=== PATIENT | female | born 1955 | race Caucasian/White ===

== ENCOUNTER 2017-06-08 16:49 | Emergency (ER) | payer MEDICARE, OTHER ==
[~2017-06-08] VITALS: Ht 157.5 cm; Wt 88.5 kg
[~2017-06-08 16:49] MED LIST: TRAM50TA2 PO
[2017-06-08 16:53] VITALS: Ht 157.5 cm; Wt 88.5 kg
[2017-06-08 17:55] LABS: ADD UMIC YES; UR ASCORBIC ACID NEGATIVE (NEGATIVE); UR BILIRUBIN (Dip) NEGATIVE (NEGATIVE); UR BLOOD (Dip) NEGATIVE (NEGATIVE); UR CLARITY CLEAR (CLEAR); UR COLOR STRAW (YELLOW); UR GLUCOSE (Dip) NEGATIVE (NEGATIVE); UR KETONES (Dip) NEGATIVE (NEGATIVE); UR LEUKOCYTE ESTERASE (Dip) TRACE Leu/ul (NEGATIVE); UR NITRITE (Dip) NEGATIVE (NEGATIVE); UR RBC 0 /HPF (0-5); UR TOTAL PROTEIN (Dip) NEGATIVE (NEGATIVE); UR UROBILINOGEN (Dip) NEGATIVE (NEGATIVE)
[2017-06-08] MEDS ORDERED: NITR-58 PO (18:17)
--- NOTE | 2017-06-08 20:50 | ERD ---
ER Documentation Chief Complaint Date/Time DATE: 06/08/17 TIME: 20:45 Chief Complaint urgency to urinate HPI 61-year-old female coming in complaining of urinary frequency. Patient is complaining of left-sided back pain. Patient denies any dysuria. Denies hematuria. She has never had this before. Denies chest pain or shortness of breath. Denies changes in bowel movements. Is passing gas normally. Denies fever. Has not taken medications for her symptoms. Patient does take pills for diabetes. Blood sugar at home was 130. Denies polydipsia Medical history: Diabetes, HTN Allergies: PCN ROS All systems reviewed and are negative except as per history of present illness. Medications Home Meds Active Scripts Nitrofurantoin Monohyd Macrocr* (Macrobid*) 100 Mg Capsr, 100 MG PO BID for 14 Days, CAP Prov:RYLEE ZACARIAS PA-C 06/08/17 Tramadol HCl (Tramadol HCl) 50 Mg Tab, 50 MG PO Q6 Y for PAIN, #20 TAB Prov:RADHA FERNANDEZ NP 03/30/15 Allergies Allergies: Coded Allergies: Penicillins (Verified Allergy, Mild, 03/30/15) PMhx/Soc History of Surgery: Yes (cholecystecomy) Anesthesia Reaction: No Hx Neurological Disorder: No Hx Respiratory Disorders: No Hx Cardiac Disorders: No Hx Psychiatric Problems: No Hx Miscellaneous Medical Probl: No Hx Alcohol Use: No Hx Substance Use: No Hx Tobacco Use: No Physical Exam Vitals Vital Signs Date Time Temp Pulse Resp B/P Pulse Ox O2 Delivery O2 Flow Rate FiO2 06/08/17 16:53 98.3 89 20 133/62 99 Physical Exam GENERAL: The patient is well-appearing, well-nourished, in no acute distress. CHEST: Clear to auscultation bilaterally. There are no rales, wheezes or rhonchi. HEART: Regular rate and rhythm. No murmurs, clicks, rubs or gallops. No S3 or S4. ABDOMEN:Soft, nontender and nondistended. Good bowel sounds. No rebound or guarding. No gross peritonitis. No gross organomegaly or masses. No Alvarez sign or McBurney point tenderness. BACK: No midline or flank tenderness. EXTREMITIES: Equal pulses bilaterally. There is no peripheral clubbing, cyanosis or edema. No focal swelling or erythema. Full range of motion. Grossly neurovascularly intact. NEUROLOGIC: Alert and oriented. Cranial nerves II through XII intact. Motor strength in all 4 extremities with 5 out of 5 strength. Sensation grossly intact. Normal speech and gait. Babinski negative. DTR 2+ throughout. SKIN: There is no apparent rash or petechiae. The skin is warm and dry. HEMATOLOGIC AND LYMPHATIC: There is no evidence of excessive bruising or lymphadenopathy. No gross cervical, axillary, or inguinal lymphadenopathy. Results 24 hrs Laboratory Tests Test 06/08/17 17:35 Urine Color STRAW Urine Clarity CLEAR Urine pH 6.0 Urine Specific [place] 1.010 Urine Ketones NEGATIVEmg/dL Urine Nitrite NEGATIVEmg/dL Urine Bilirubin NEGATIVEmg/dL Urine Urobilinogen NEGATIVEmg/dL Urine Leukocyte Esterase TRACELeu/ul Urine Microscopic RBC 0/HPF Urine Microscopic WBC 1/HPF Urine Hemoglobin NEGATIVEmg/dL Urine Glucose NEGATIVEmg/dL Urine Total Protein NEGATIVEmg/dl Procedures/MDM Urine sent for culture MDM: 61-year-old female coming in complaining of urinary urgency. I have low suspicion for hyperglycemia, DKA or diabetic complication. Patient's blood sugar at home was 130. Patient does not complain of polydipsia. I have low suspicion for cauda equina. Patient does not have complaint of back pain or saddle anesthesia. I have low suspicion for pelvic emergency. Patient's exam is not concerning. I have low suspicion for acute abdomen as patient's abdominal exam is not concerning. Patient's urine will be sent for culture. Patient will be given medication for UTI as she is complaining of urinary frequency. Patient is told symptoms change or worsen to return to the ER. Patient understood and complied with plan. Departure Diagnosis: Primary Impression: Genitourinary symptoms Condition: Stable Patient Instructions: Urinary Tract Infections in Women Referrals: RUPERT VELEZ (PCP) Additional Instructions: FOLLOW UP WITH YOUR PRIMARY CARE PHYSICIAN TOMORROW.Return to this facility if you are not improving as expected. RYLEE ZACARIAS PA-C Jun 08, 2017 20:50
== END 2017-06-08 18:27 | disposition home or self-care (01) ==
LOC: FTE 16:49
DX: R35.0 Frequency of micturition (principal); I10 Essential (primary) hypertension; E11.9 Type 2 diabetes mellitus without complications
CPT/HCPCS: 81001; 87086; 99283

== ENCOUNTER 2017-09-11 18:29 | Emergency (ER) | payer MEDICARE, OTHER ==
[~2017-09-11] VITALS: Ht 167.6 cm; Wt 87.0 kg
[~2017-09-11 18:29] MED LIST changes: +NITR-58 PO
[2017-09-11 19:17] VITALS: Ht 167.6 cm; Wt 87.0 kg
[2017-09-11] MEDS ORDERED: ACETAMINOPHEN 325 MG TAB PO ONE (23:00)
[2017-09-11 23:15] LABS: ADD UMIC YES; UR ASCORBIC ACID 40 mg/dL (NEGATIVE); UR BILIRUBIN (Dip) NEGATIVE (NEGATIVE); UR BLOOD (Dip) NEGATIVE (NEGATIVE); UR CLARITY CLEAR (CLEAR); UR COLOR YELLOW (YELLOW); UR GLUCOSE (Dip) NEGATIVE (NEGATIVE); UR KETONES (Dip) NEGATIVE (NEGATIVE); UR LEUKOCYTE ESTERASE (Dip) 1+ Leu/ul (NEGATIVE); UR NITRITE (Dip) NEGATIVE (NEGATIVE); UR RBC 1 /HPF (0-5); UR SPECIFIC GRAVITY (Dip) 1.012 (1.003-1.030); UR TOTAL PROTEIN (Dip) NEGATIVE (NEGATIVE); UR UROBILINOGEN (Dip) NEGATIVE (NEGATIVE)
--- NOTE | 2017-09-11 23:53 | RADRPT ---
PROCEDURE: CT Brain without contrast. CLINICAL INDICATION: Headache. TECHNIQUE: A CT of the brain was performed utilizing axial imaging from the skull base through the vertex without IV contrast. Multiplanar reformatted images were made. Images were reviewed on a Mindie workstation. The CTDIvol is 45.01 mGy and the DLP is 810.25 mGycm. One or more of the following dose reduction techniques were utilized: 1.) Automated exposure control 2.) Adjustment of the mA +/- kV according to patient's size 3.) Use of iterative reconstruction technique. COMPARISON: None FINDINGS: Chronic changes of atrophy and small vessel disease of white matter. There is no intracranial hemorrhage, mass effect, or midline shift. No extra-axial fluid collection is seen. The ventricles and sulci are otherwise normal in size and configuration. The density of th e brain is otherwise normal, and the schmidt white matter differentiation appears well-preserved. The visualized paranasal sinuses and osseous structures are grossly unremarkable. IMPRESSION: 1. Chronic changes of atrophy and small vessel disease white matter. 2. Otherwise, no evident acute process in the head. RPTAT: UU Physician Krunal Date Time Electronically viewed and signed by Physician Krunal on 09/11/2017 23:53 /
--- NOTE | 2017-09-12 00:03 | RADRPT ---
PROCEDURE: CT of the orbits and temporal bones without contrast. CLINICAL INDICATION: Right mastoid pain and tenderness. TECHNIQUE: CT scan of the orbits and temporal bones was performed on a multi-detector high-resol ution CT scanner. Contiguous axial images were obtained without intravenous contrast. Coronal and sagittal reformatted images were also obtained. Images were reviewed on the PACS workstation. DICOM images are available. One or more of the following dose reduction techniques were used: - Automated exposure control. - Adjustment of the mA and/or kV according to patient size. - Use of iterative reconstruction technique. Exam CTD/vol = 29.09 mGy. Total exam DLP = 349.98 mGy-cm. COMPARISON: None. FINDINGS: There is no evidence of fracture. The nasal bones are intact. Bilateral orbital rims, zygoma and z ygomatic arches are intact. The pterygoid plates are intact. Bilateral temporomandibular joints ar e within normal limits. Paranasal sinuses are clear without air fluid levels. Bilateral orbital globes are symmetric and within normal limits. The extraocular muscles are symmet diana and of normal caliber. Bilateral retrobulbar fat are clear. Bilateral optic nerves and superio r ophthalmic veins are within normal limits. Right temporal bone: The mastoid air cells are well formed and aerated. The external auditory anuja l is also well formed and grossly free of soft tissue. Middle ear structures are unremarkable. The ossicles are intact. Inner ear structures are grossly well formed. The facial nerve canal is seen in its extent and is unremarkable. The internal auditory canal is also unremarkable. No lytic or destructive lesions are evident. Left temporal bone: The mastoid air cells are well formed and aerated. The external auditory canal is also well formed and grossly free of soft tissue. Middle ear structures are unremarkable. The ossicles are intact. Inner ear structures are grossly well formed. The facial nerve canal is seen in its extent and is unremarkable. The internal auditory canal is also unremarkable. No lytic or d estructive lesions are evident. IMPRESSION: Unremarkable CT of the orbits and temporal bones. .Edilberto Rodrigez MD, Date Time Electronically viewed and signed by .Edilberto Rodrigez MD, MD on 09/12/2017 00:03 .T/
[2017-09-12] MEDS ORDERED: CEPH-443 PO (00:33)
[2017-09-12] MEDS ORDERED: ACET500C5 PO (00:33)
--- NOTE | 2017-09-12 01:10 | ERD ---
ER Documentation Chief Complaint Chief Complaint headache x 2 days, neck pain HPI 61-year-old female patient with a past medical history of diabetes, hypertension , hyperlipidemia presents to the ED complaining of right-sided headache, ear pain, neck pain that started 2 days. Denies any trauma. Describes the pain as pressure-like and rates it a 6 out of 10. States that she is nauseous but denies any vomiting. Denies any chest pain, shortness of breath, wheezing, dyspnea on exertion, orthopnea, weakness, numbness or tingling. ROS All systems reviewed and are negative except as per history of present illness. Medications Home Meds Active Scripts Cephalexin* (Keflex*) 500 Mg Capsule, 500 MG PO QID for 7 Days, CAP Prov:BRADLY WONG PA-C 09/12/17 Acetaminophen* (Tylophen*) 500 Mg Capsule, 1 CAP PO Q6H Y for PAIN AND OR ELEVATED TEMP, #20 CAP Prov:BRADLY WONG PA-C 09/12/17 Nitrofurantoin Monohyd Macrocr* (Macrobid*) 100 Mg Capsr, 100 MG PO BID for 14 Days, CAP Prov:RYLEE ZACARIAS PA-C 06/08/17 Tramadol HCl (Tramadol HCl) 50 Mg Tab, 50 MG PO Q6 Y for PAIN, #20 TAB Prov:RADHA FERNANDEZ NP 03/30/15 Allergies Allergies: Coded Allergies: Penicillins (Verified Allergy, Mild, 03/30/15) PMhx/Soc History of Surgery: Yes (cholecystecomy) Anesthesia Reaction: No Hx Neurological Disorder: No Hx Respiratory Disorders: No Hx Cardiac Disorders: No Hx Psychiatric Problems: No Hx Miscellaneous Medical Probl: Yes (DM, HTN, high choelsterol) Hx Alcohol Use: No Hx Substance Use: No Hx Tobacco Use: No Smoking Status: Never smoker Physical Exam Vitals Vital Signs Date Time Temp Pulse Resp B/P Pulse Ox O2 Delivery O2 Flow Rate FiO2 09/11/17 19:17 98.8 96 20 146/73 98 Physical Exam Const: [id number], well-nourished. In no acute distress. Head: Atraumatic, normocephalic. No August's syndrome. Eyes: Normal Conjunctiva without injection. No purulent discharge. PERRLA. EOMI ENT: Normal external ear. Ear canal without erythema. Tympanic membrane pearly schmidt without effusion or bulging. Nasal canal clear with normal turbinates. Moist oropharynx without tonsillar exudates. Non-erythematous pharynx. Uvula midline. No drooling. No trismus. Neck: No cervical midline tenderness. Full range of motion. No meningismus. No cervical lymphadenopathy. No JVD. No carotid bruits. Resp: Clear to auscultation bilaterally. No wheezing, rhonchi, rales, or crackles. No accessory muscle use. No retractions. Cardio: Regular rate and rhythm. No murmurs, rubs or gallops. Abd: Soft, non tender, non distended. Normal bowel sounds. No palpable masses. No rebound tenderness. No guarding. Negative McBurney's Point. Negative Alvarez's Sign. Skin: Normal skin turgor. No petechiae or rashes Back: No midline tenderness. No CVA tenderness. Ext: No cyanosis, or edema. Distal pulses intact bilaterally. Neur: Awake and alert. Normal gait. Normal coordination. Cranial Nerves II- VII intact. Normal finger to nose. Muscle strength 5/5. Sensation intact. Psych: Normal Mood and Affect Results 24 hrs Laboratory Tests Test 09/11/17 22:40 Urine Color YELLOW Urine Clarity CLEAR Urine pH 5.0 Urine Specific [place] 1.012 Urine Ketones NEGATIVEmg/dL Urine Nitrite NEGATIVEmg/dL Urine Bilirubin NEGATIVEmg/dL Urine Urobilinogen NEGATIVEmg/dL Urine Leukocyte Esterase 1+Janice/ul Urine Microscopic RBC 1/HPF Urine Microscopic WBC 17/HPF Urine Hemoglobin NEGATIVEmg/dL Urine Glucose NEGATIVEmg/dL Urine Total Protein NEGATIVEmg/dl Current Medications Medications (Trade) Dose Ordered Sig/Jyotsna Route PRN Reason Start Time Stop Time Status Last Admin Dose Admin Acetaminophen (Tylenol Tab) 650 mg ONCE ONCE PO 09/11/17 23:00 09/11/17 23:01 DC 09/11/17 22:44 Procedures/MDM 61-year-old female patient with a past medical history of diabetes, hypertension , hyperlipidemia presents to the ED complaining of right-sided headache, ear pain, anterior neck pain. Patient is afebrile, nontoxic appearing. Patient was given Tylenol here in the ED with improvement of her symptoms. A urinalysis , CT of the brain without contrast, CT of the temporal bones was ordered to further evaluate patient. PROCEDURE: CT of the orbits and temporal bones without contrast. CLINICAL INDICATION: Right mastoid pain and tenderness. TECHNIQUE: CT scan of the orbits and temporal bones was performed on a multi -detector high-resolution CT scanner. Contiguous axial images were obtained without intravenous contrast. Coronal and sagittal reformatted images were also obtained. Images were reviewed on the PACS workstation. DICOM images are available. One or more of the following dose reduction techniques were used: - Automated exposure control. - Adjustment of the mA and/or kV according to patient size. - Use of iterative reconstruction technique. Exam CTD/vol = 29.09 mGy. Total exam DLP = 349.98 mGy-cm. COMPARISON: None. FINDINGS: There is no evidence of fracture. The nasal bones are intact. Bilateral orbital rims, zygoma and zygomatic arches are intact. The pterygoid plates are intact. Bilateral temporomandibular joints are within normal limits. Paranasal sinuses are clear without air fluid levels. Bilateral orbital globes are symmetric and within normal limits. The extraocular muscles are symmetric and of normal caliber. Bilateral retrobulbar fat are clear. Bilateral optic nerves and superior ophthalmic veins are within normal limits. Right temporal bone: The mastoid air cells are well formed and aerated. The external auditory canal is also well formed and grossly free of soft tissue. Middle ear structures are unremarkable. The ossicles are intact. Inner ear structures are grossly well formed. The facial nerve canal is seen in its extent and is unremarkable. The internal auditory canal is also unremarkable. No lytic or destructive lesions are evident. Left temporal bone: The mastoid air cells are well formed and aerated. The external auditory canal is also well formed and grossly free of soft tissue. Middle ear structures are unremarkable. The ossicles are intact. Inner ear structures are grossly well formed. The facial nerve canal is seen in its extent and is unremarkable. The internal auditory canal is also unremarkable. No lytic or destructive lesions are evident. IMPRESSION: Unremarkable CT of the orbits and temporal bones. PROCEDURE: CT Brain without contrast. CLINICAL INDICATION: Headache. TECHNIQUE: A CT of the brain was performed utilizing axial imaging from the skull base through the vertex without IV contrast. Multiplanar reformatted images were made. Images were reviewed on a PACS workstation. The CTDIvol is 45.01 mGy and the DLP is 810.25 mGycm. One or more of the following dose reduction techniques were utilized: 1.) Automated exposure control 2.) Adjustment of the mA +/- kV according to patient's size 3.) Use of iterative reconstruction technique. COMPARISON: None FINDINGS: Chronic changes of atrophy and small vessel disease of white matter. There is no intracranial hemorrhage, mass effect, or midline shift. No extra- axial fluid collection is seen. The ventricles and sulci are otherwise normal in size and configuration. The density of the brain is otherwise normal, and the schmidt white matter differentiation appears well-preserved. The visualized paranasal sinuses and osseous structures are grossly unremarkable. IMPRESSION: 1. Chronic changes of atrophy and small vessel disease white matter. 2. Otherwise, no evident acute process in the head. Patient also has a urinary tract infection noted here in the ED with 1+ leukocyte esterase. Low suspicion for pyelonephritis, acute abdomen, aortic dissection, other emergent conditions. Low suspicion for acute myocardial infarction, pneumothorax, pneumonia, dissection, cardiac tamponade, pulmonary embolism, pleural effusion, AAA, aortic dissection, Boerhaave's syndrome, cardiac dysrhythmias,meningitis, intracranial bleed, seizure, stroke, TIA, carotid dissection, cavernous sinus thrombosis, or other emergent conditions. Patient's physical exam include lungs which were clear to auscultation and a normal pulse oximetry. Bilateral ears pearly barakat. No tenderness to palpation of tragus or mastoid. Low suspicion for mastoiditis, otitis externa, otitis media. Patient is speaking in full sentences. There is a low suspicion for pneumonia, epiglottitis, croup, sinusitis, peritonsillar abscess, hands foot mouth disease, scarlet fever, Louis's angina, retropharyngeal abscess, meningitis, sepsis, acute abdomen or other emergent conditions. Discharge medications: Tylenol, Keflex Follow up with primary care physician in 1-2 days. Instructed patient to return to the ED sooner for any worsening symptoms. Patient's questions were answered. Patient understood and agreed with discharge plan. Patient discharged stable. Departure Diagnosis: Primary Impression: Headache Headache type: unspecified Headache chronicity pattern: unspecified pattern Intractability: not intractable Qualified Code: R51 - Nonintractable headache, unspecified chronicity pattern, unspecified headache type Additional Impressions: Ear pain Laterality: unspecified laterality Qualified Code: H92.09 - Otalgia, unspecified laterality Neck pain Condition: Stable Patient Instructions: Urinary Tract Infections in Women, Headache, Unspecified , Neck Pain, No Trauma Referrals: [facility] YOU HAVE RECEIVED A MEDICAL SCREENING EXAM AND THE RESULTS INDICATE THAT YOU DO NOT HAVE A CONDITION THAT REQUIRES URGENT TREATMENT IN THE EMERGENCY DEPARTMENT. FURTHER EVALUATION AND TREATMENT OF YOUR CONDITION CAN WAIT UNTIL YOU ARE SEEN IN YOUR DOCTORS OFFICE WITHIN THE NEXT 1-2 DAYS. IT IS YOUR RESPONSIBILITY TO MAKE AN APPOINTMENT FOR FOLOW-UP CARE. IF YOU HAVE A PRIMARY DOCTOR --you should call your primary doctor and schedule an appointment IF YOU DO NOT HAVE A PRIMARY DOCTOR YOU CAN CALL OUR PHYSICIAN REFERRAL HOTLINE AT IF YOU CAN NOT AFFORD TO SEE A PHYSICIAN YOU CAN CHOSE FROM THE FOLLOWING [facility] [address] [facility] [address] [facility] [address] [facility] [address] [facility] [address] [facility]. [facility] [address] [facility]. [facility] YOU HAVE RECEIVED A MEDICAL SCREENING EXAM AND THE RESULTS INDICATE THAT YOU DO NOT HAVE A CONDITION THAT REQUIRES URGENT TREATMENT IN THE EMERGENCY DEPARTMENT. FURTHER EVALUATION AND TREATMENT OF YOUR CONDITION CAN WAIT UNTIL YOU ARE SEEN IN YOUR DOCTORS OFFICE WITHIN THE NEXT 1-2 DAYS. IT IS YOUR RESPONSIBILITY TO MAKE AN APPOINTMENT FOR FOLOW-UP CARE. IF YOU HAVE A PRIMARY DOCTOR --you should call your primary doctor and schedule and appointment IF YOU DO NOT HAVE A PRIMARY DOCTOR YOU CAN CALL OUR PHYSICIAN REFERRAL HOTLINE AT . IF YOU CAN NOT AFFORD TO SEE A PHYSICIAN YOU CAN CHOSE FROM THE FOLLOWING [facility] INSTITUTIONS: [facility] [address] [place] [address] [facility] [address] [place] [address] [facility] [address] [place] [address] [facility] URGENT CARE/SPECIALTIES Additional Instructions: Call your primary care doctor TOMORROW for an appointment during the next 2-3 days.See the doctor sooner or return here if your condition worsens before your appointment time. BRADLY WONG PA-C Sep 12, 2017 01:10 BRADLY WONG PA-C Sep 12, 2017 01:10 BRADLY WONG PA-C Sep 12, 2017 01:10
== END 2017-09-12 00:40 | disposition home or self-care (01) ==
LOC: FTE 18:29
DX: R51 Headache (principal); H92.01 Otalgia, right ear; M54.2 Cervicalgia; I10 Essential (primary) hypertension; E11.9 Type 2 diabetes mellitus without complications
CPT/HCPCS: 70450; 70480; 81001